=== PATIENT | male | born 1965 | race Hispanic/Latino ===

== ENCOUNTER 2023-11-07 22:15 | Inpatient (IN) | payer BC ==
[~2023-11-07] VITALS: Ht 157.5 cm; Wt 71.2 kg
[2023-11-07 23:00] VITALS: BP 141/72; PULSE 83; RESP 21; TEMP 98.4; O2SAT 98
[2023-11-07 23:50] LABS: BASOPHILS % 0.4 % (0.0-1.0); EOSINOPHILS # (AUTO) 0.3 (0.0-0.4); EOSINOPHILS % 2.8 % (0.0-6.0); HEMATOCRIT 33.5 % (38.2-49.6); LYMPHOCYTES # (AUTO) 0.5 (1.0-3.2); LYMPHOCYTES % 5.5 % (18.0-39.1); MEAN CORPUSCULAR HEMOGLOBIN 32.1 pg (28-32); MEAN CORPUSCULAR HGB CONC 29.9 g/dL (31-35); MEAN CORPUSCULAR VOLUME 107.4 fL (81-99); MONOCYTES # (AUTO) 0.9 (0.2-0.8); MONOCYTES % 9.3 % (4.4-11.3); NEUTROPHILS # (AUTO) 7.4 (2.1-6.9); NEUTROPHILS % 80.4 % (38.7-80.0); PLATELET COUNT 128 x10e3/uL (140-360); RED BLOOD COUNT 3.12 x10e6/uL (4.3-5.7); RED CELL DISTRIBUTION WIDTH 13.8 % (11.7-14.4); WHITE BLOOD COUNT 9.21 x10e3/uL (4.8-10.8)
[2023-11-08] VITALS (8 sets, daily range): BP systolic 98–152; BP diastolic 59–98; PULSE 70–93; RESP 17–21; TEMP 97.6–98.6; O2SAT 93–98
[2023-11-08] LABS: ALBUMIN 2.7 g/dL (3.5-5.0); ALBUMIN/GLOBULIN RATIO 0.6 (0.8-2.0); ANION GAP 21.6 mmol/L (8-16); BILIRUBIN,TOTAL 0.5 mg/dL (0.2-1.2); CALCIUM 9.7 mg/dL (8.4-10.2); CREATININE, SERUM 11.33 mg/dL (0.72-1.25); POTASSIUM 4.6 mmol/L (3.5-5.1); TOTAL PROTEIN 7.6 g/dL (6.5-8.1)
[2023-11-08] MEDS ORDERED: SEVELAMER HCL800 MG PO (01:56)
[2023-11-08] MEDS ORDERED: MULTI-VITAMIN1 EACH PO (01:56)
[2023-11-08] MEDS ORDERED: VITAMIN D3100 GM PO (01:56)
[2023-11-08] MEDS ORDERED: METOPROLOL TART50 MG PO (01:56)
[2023-11-08] MEDS ORDERED: ASPIRIN81 MG PO (01:56)
[2023-11-08] MEDS ORDERED: ONDANSETRON HCL INJ 2MG/ML 2ML 2 MG/ML VIAL IV PRN (02:30)
[2023-11-08] MEDS ORDERED: ACETAMINOPHEN 325 MG TAB PO PRN ×2 (02:30→10:45)
[2023-11-08 05:07] LABS: ANISOCYTOSIS MODERATE; HYPOCHROMASIA SLIGHT
[2023-11-08 05:08] LABS: BURR CELLS SLIGHT; PLATELET ESTIMATE ADEQUATE; PLATELET MORPHOLOGY COMMENT NORMAL; RBC MORPHOLOGY COMMENT ABNORMAL
[2023-11-08] MEDS ORDERED: ALBUTEROL/IPRATROPIUM 3 ML NEB NEB PRN (10:45)
[2023-11-08] MEDS ORDERED: BENZONATATE 100 MG CAP PO PRN (10:45)
[2023-11-08] MEDS ORDERED: DOCUSATE SODIUM 100 MG CAP PO PRN (10:45)
[2023-11-08] MEDS ORDERED: LIDOCAINE 4% PATCH TP PRN (10:45)
[2023-11-08] MEDS ORDERED: SIMETHICONE 80 MG CHEW PO PRN (10:45)
[2023-11-08] MEDS ORDERED: DIPHENHYDRAMINE HCL 25 MG CAP PO PRN (10:45)
[2023-11-08] MEDS ORDERED: MELATONIN 5 MG TABLET PO PRN (10:45)
[2023-11-08] MEDS ORDERED: DEXTROSE 50% SYRINGE 50 ML IV PRN (10:45)
[2023-11-08] MEDS ORDERED: IOPAMIDOL 370 MG/ML 100 ML INFUS..BTL INJ ONE (12:30)
[2023-11-08] MEDS: SEVELAMER CARBONATE 800 MG TAB PO SCH (14:18)
[2023-11-09] VITALS (9 sets, daily range): BP systolic 116–158; BP diastolic 51–81; PULSE 74–96; RESP 18–20; TEMP 97.7–99.3; O2SAT 94–100
[2023-11-09 05:53] LABS: BASOPHILS % 0.6 % (0.0-1.0); EOSINOPHILS # (AUTO) 0.4 (0.0-0.4); EOSINOPHILS % 5.6 % (0.0-6.0); HEMATOCRIT 31.6 % (38.2-49.6); HEMOGLOBIN 9.3 g/dL (14.0-18.0); LYMPHOCYTES # (AUTO) 0.5 (1.0-3.2); LYMPHOCYTES % 7.7 % (18.0-39.1); MEAN CORPUSCULAR HEMOGLOBIN 31.4 pg (28-32); MEAN CORPUSCULAR HGB CONC 29.4 g/dL (31-35); MEAN CORPUSCULAR VOLUME 106.8 fL (81-99); MONOCYTES # (AUTO) 0.6 (0.2-0.8); MONOCYTES % 8.6 % (4.4-11.3); NEUTROPHILS # (AUTO) 4.8 (2.1-6.9); NEUTROPHILS % 75.9 % (38.7-80.0); PLATELET COUNT 123 x10e3/uL (140-360); RED BLOOD COUNT 2.96 x10e6/uL (4.3-5.7); RED CELL DISTRIBUTION WIDTH 13.6 % (11.7-14.4); WHITE BLOOD COUNT 6.38 x10e3/uL (4.8-10.8)
[2023-11-09 06:12] LABS: ANION GAP 13.8 mmol/L (8-16); CALCIUM 9.6 mg/dL (8.4-10.2); CREATININE, SERUM 6.91 mg/dL (0.72-1.25); POTASSIUM 3.8 mmol/L (3.5-5.1)
[2023-11-09] MEDS: PANTOPRAZOLE SOD 40 MG TABEC PO SCH (11:11)
[2023-11-10] VITALS (9 sets, daily range): BP systolic 124–182; BP diastolic 48–81; PULSE 65–91; RESP 18–20; TEMP 97.6–99.3; O2SAT 95–100
[2023-11-10 06:54] LABS: BASOPHILS % 0.7 % (0.0-1.0); EOSINOPHILS # (AUTO) 0.4 (0.0-0.4); EOSINOPHILS % 6.6 % (0.0-6.0); HEMATOCRIT 31.5 % (38.2-49.6); HEMOGLOBIN 9.5 g/dL (14.0-18.0); LYMPHOCYTES # (AUTO) 0.5 (1.0-3.2); LYMPHOCYTES % 9.1 % (18.0-39.1); MEAN CORPUSCULAR HGB CONC 30.2 g/dL (31-35); MEAN CORPUSCULAR VOLUME 106.1 fL (81-99); MONOCYTES # (AUTO) 0.7 (0.2-0.8); MONOCYTES % 11.3 % (4.4-11.3); NEUTROPHILS # (AUTO) 4.1 (2.1-6.9); NEUTROPHILS % 71.1 % (38.7-80.0); PLATELET COUNT 137 x10e3/uL (140-360); RED BLOOD COUNT 2.97 x10e6/uL (4.3-5.7); RED CELL DISTRIBUTION WIDTH 13.3 % (11.7-14.4); WHITE BLOOD COUNT 5.73 x10e3/uL (4.8-10.8)
[2023-11-10 07:25] LABS: ANION GAP 18.8 mmol/L (8-16); CALCIUM 9.4 mg/dL (8.4-10.2); CREATININE, SERUM 9.53 mg/dL (0.72-1.25); POTASSIUM 3.8 mmol/L (3.5-5.1)
[2023-11-10] MEDS: SODIUM CHLORIDE 0.9% 250ML 250 ML ONE (09:36)
[2023-11-10] MEDS: HYDRALAZINE HCL 20 MG/ML VIAL IV PRN (09:39)
[2023-11-10] MEDS: METOPROLOL TARTRATE 50 MG TAB PO SCH (14:04)
[2023-11-10] MEDS ORDERED: ONDANSETRON HCL 4 MG ORAL DISINTEGRATING TAB PO PRN (15:30)
[2023-11-10] MEDS: ATORVASTATIN 40 MG TAB PO SCH (22:30)
[2023-11-11] VITALS (9 sets, daily range): BP systolic 118–173; BP diastolic 48–78; PULSE 65–81; RESP 17–20; TEMP 97.6–98.8; O2SAT 94–98
[2023-11-11 07:37] LABS: CHOL/HDL RATIO 3.1 (3.9-4.7)
[2023-11-11] MEDS ORDERED: SODIUM CHLORIDE 0.9% 1000ML 2,000 ML ONE (08:03)
[2023-11-11] MEDS: ASPIRIN 81 MG ENTERIC COATED PO SCH (08:47)
[2023-11-12] VITALS (7 sets, daily range): BP systolic 118–147; BP diastolic 59–79; PULSE 68–80; RESP 17–18; TEMP 97.1–98.9; O2SAT 95–98
[2023-11-12 15:20] LABS: HEPATITIS B SURFACE AG (P) Negative
[2023-11-12 15:21] LABS: HEPATITIS B CORE AB TOTAL Negative
[2023-11-12] MEDS ORDERED: ATORVASTATIN CA40 MG PO (17:08)
[2023-11-12] MEDS ORDERED: AUGMENTIN 500-1 EACH PO (17:37)
== END 2023-11-12 18:06 | disposition home or self-care (01) | DRG 177 ==
LOC: MED/SURG2 22:42
PROVIDERS: ADMIT Internal Medicine; ATTEND Internal Medicine
PROC: 5A1D70Z Performance of Urinary Filtration, Intermittent, Less than 6 Hours Per Day (ICD-10-PCS; principal; 2023-11-08)
DX: U07.1 COVID-19 (principal); I21.A1 Myocardial infarction type 2; J12.82 Pneumonia due to coronavirus disease 2019; N18.6 End stage renal disease; J96.90 Respiratory failure, unspecified, unspecified whether with hypoxia or hypercapnia; J96.01 Acute respiratory failure with hypoxia; I12.0 Hypertensive chronic kidney disease with stage 5 chronic kidney disease or end stage renal disease; J81.1 Chronic pulmonary edema; I27.21 Secondary pulmonary arterial hypertension; R19.7 Diarrhea, unspecified; M89.8X0 Other specified disorders of bone, multiple sites; Z99.2 Dependence on renal dialysis; H54.8 Legal blindness, as defined in USA; Z82.49 Family history of ischemic heart disease and other diseases of the circulatory system
CPT/HCPCS: 36415; 71045; 71260; 74177; 80048; 80053; 80061; 82948; 83036; 83605; 84484; 85025; 86704; 86706; 87040; 87045; 87324; 87340; 87449; 93306; 94799; 99252; J0360; J2543; J7030; J7050; Q9967; U0002